=== PATIENT | male | born 1990 | race Caucasian/White ===

== ENCOUNTER → 2019-06-10 | Outpatient (CLI) | payer OTHER ==
--- NOTE | 2019-06-11 03:37 | REP ---
Clinical: Shoulder pain. Technique: Internal rotation, external rotation, and Y view of the right shoulder. Findings: Acromioclavicular and glenohumeral joints appear intact and relatively normal. Subacromial space is within normal limits. No periarticular calcifications or loose bodies identified. No obvious acute injury. Surrounding soft tissues are unremarkable. Impression: Normal right shoulder radiographs. Electronically Signed by Chuck Loving MD 06/11/2019 03:28 A
== END ==
LOC: M WUC 16:30
PROVIDERS: ATTEND Nurse Practitioner Family
DX: M25.511 Pain in right shoulder (principal)

== ENCOUNTER → 2019-08-12 | Outpatient (CLI) | payer OTHER ==
[~2019-08-12] MED LIST: ISOVUE-300 61% 50ML VIAL As Ordered ONE; PROHANCE 279.3MG/ML 5ML VIAL As Ordered ONE
--- NOTE | 2019-08-12 16:28 | REP ---
REASON: Pain, instability, decreased range of motion, assess for labral pathology. The glenohumeral joint injection was performed by HERIBERTO Espinoza. The pre-injection portion of the examination shows moderate to severe hypertrophic degenerative change seen involving the acromioclavicular joint. The acromion process is type 2 with a spur arising from the inferior surface at the AC joint. There is patchy and linear T2 hypersignal seen throughout the supraspinatus tendon without evidence of supraspinatus muscle belly atrophy or retraction. Normal appearing low signal is seen throughout the subscapularis, infraspinatus, and teres minor tendons. The biceps tendon resides within the bicipital groove. There is evidence of a Hill-Sachs deformity. There is no glenohumeral joint effusion. There is a small amount of fluid in the subcoracoid recess. The postinjection portion of the examination shows mild and significant signal abnormality in the anterior labrum, particularly superiorly but in the posterior labrum and inferiorly as well. There is irregularity of the biceps labral complex. There is thickening of the superior aspect of the middle glenohumeral ligament. None of the injected fluid has migrated superior to the supraspinatus tendon. IMPRESSION: 1. There is significant labral pathology consistent with multiple labral tears as described above and seen in conjunction with significant biceps labral complex fraying/partial tear as well. 2. There supraspinatus tendinitis/tendinosis. Longitudinal partial tear cannot be ruled out. 3. Hill-Sacks deformity and thickening of the superior aspect of the middle glenohumeral ligament consistent with repeated glenohumeral dislocations. 4. AC joint DJD and related findings as described above. 5. Other findings as described above. Electronically Signed by Denver Felton DO 08/12/2019 05:32 P
--- NOTE | 2019-08-12 19:38 | REP ---
Procedure: Right shoulder arthrogram The procedure was performed under the direct supervision of Dr. Puente. History: Right shoulder pain The benefits and risks including but not limited to pain, infection, bleeding and anaphylaxis were explained to the patient and informed consent was obtained. Technique: The right glenohumeral joint space was localized using fluoroscopic guidance. The skin was prepped and draped in a sterile fashion. 1% lidocaine was used as a local anesthetic. Using fluoroscopic guidance a 22 gauge spinal needle was inserted and advanced into the joint. 0.5 ml of Conray 43 was injected to verify placement. 11 ml of a solution containing 20 ml of sterile saline and 0.15 ml of ProHance was injected into the joint. The needle was removed and the patient was taken to MRI for postprocedural imaging. The the patient tolerated the procedure well and there were no immediate complications. Less than 6 seconds of fluoro time was utilized for this procedure. Electronically Signed by HERIBERTO Espinoza 08/12/2019 05:00 P Electronically Signed by Niraj Puente MD 08/12/2019 07:28 P
== END ==
LOC: M RADPRO 06:31
PROVIDERS: ATTEND Orthopaedic Surgery Sports Medicine
DX: M25.311 Other instability, right shoulder (principal); M21.921 Unspecified acquired deformity of right upper arm; M75.81 Other shoulder lesions, right shoulder
CPT/HCPCS: 23350; 73223; 77002; A9576; Q9967

== ENCOUNTER → 2022-09-05 | Outpatient (REF) | payer OTHER ==
[2022-09-05 17:42] LABS: BASO % 0.5 % (0.0-1.0); EOS # 0.1 10^3/uL (0.0-0.5); EOS % 1.2 % (0.0-3.0); HEMATOCRIT 43.3 % (42.0-52.0); HEMOGLOBIN 15.1 g/dl (13.5-17.5); LYMPH # 2.2 10^3/uL (1.5-5.0); LYMPH % 36.2 % (24.0-44.0); MEAN CORPUSCULAR HEMOGLOBIN 36.5 pg (27.0-33.0); MEAN CORPUSCULAR HGB CONC 34.9 g/dl (32.0-36.5); MEAN CORPUSCULAR VOLUME 104.6 fl (80.0-96.0); MONO # 0.5 10^3/uL (0.0-0.8); MONO % 8.4 % (2.0-8.0); NEUTROPHILS # 3.2 10^3/uL (1.5-8.5); NEUTROPHILS % 53.5 % (36.0-66.0); PLATELET COUNT, AUTOMATED 237 10^3/uL (150-450); RED BLOOD COUNT 4.14 10^6/uL (4.30-6.10)
[2022-09-05 18:03] LABS: ALBUMIN 4.3 G/DL (3.2-5.2); ALKALINE PHOSPHATASE 78 U/L (46-116); ALT/SGPT 64 U/L (7.0-40); AST/SGOT 27 U/L (<34); BILIRUBIN,TOTAL 0.6 MG/DL (0.3-1.2); BLOOD UREA NITROGEN 17 MG/DL (9-23); CALCIUM LEVEL 9.1 MG/DL (8.5-10.1); CARBON DIOXIDE LEVEL 26 MMOL/L (20-31); CHLORIDE LEVEL 102 MMOL/L (98-107); CHOLESTEROL LEVEL 180 MG/DL (<200); CHOLESTEROL RISK RATIO 4.63 (<5); CREATININE FOR GFR 1.02 MG/DL (0.70-1.30); GLOMERULAR FILTRATION RATE > 60.0 (>60); GLUCOSE, FASTING 101 MG/DL (60-100); HDL CHOLESTEROL 38.8 MG/DL (>40); NON-HDL-C 141.2 MG/DL; POTASSIUM SERUM 4.6 MMOL/L (3.5-5.1); SODIUM LEVEL 138 MMOL/L (136-145); TRIGLYCERIDES LEVEL 627 MG/DL (<150)
[2022-09-05 18:04] LABS: THYROID STIMULATING HORMONE 1.064 uIU/ML (0.55-4.78); TOTAL 25(OH) VITAMIN D 20.2 NG/ML (20.0-100.0)
[2022-09-05 18:38] LABS: HEMOGLOBIN A1c 4.9 % (4.0-6.0)
== END ==
LOC: M LAB REF 16:36
PROVIDERS: ATTEND Nurse Practitioner Family
DX: E66.3 Overweight (principal); E55.9 Vitamin D deficiency, unspecified; Z11.9 Encounter for screening for infectious and parasitic diseases, unspecified; Z68.41 Body mass index [BMI] 40.0-44.9, adult

== ENCOUNTER 2022-10-09 16:23 | Emergency (ER) | payer OTHER ==
[~2022-10-09] VITALS: Ht 188 cm; Wt 145.5 kg
[2022-10-09] MEDS ORDERED: ONDANSETRON 4MG 2ML VIAL IV ONE (16:35)
[2022-10-09] MEDS ORDERED: NS 1,000 ML IV ONE (16:35)
[2022-10-09] MEDS ORDERED: KETOROLAC 30 MG/ML 1ML VIAL IV ONE (17:25)
[2022-10-09] MEDS ORDERED: METOCLOPRAMIDE INJ 10MG/2ML VIAL IV ONE (17:25)
[2022-10-09 17:27] LABS: ALBUMIN 4.7 G/DL (3.2-5.2); ALKALINE PHOSPHATASE 77 U/L (46-116); ALT/SGPT 58 U/L (7.0-40); AST/SGOT 28 U/L (<34); BILIRUBIN,TOTAL 1.5 MG/DL (0.3-1.2); BLOOD UREA NITROGEN 15 MG/DL (9-23); CALCIUM LEVEL 9.8 MG/DL (8.5-10.1); CARBON DIOXIDE LEVEL 21 MMOL/L (20-31); CHLORIDE LEVEL 107 MMOL/L (98-107); CREATININE FOR GFR 0.89 MG/DL (0.70-1.30); GLOMERULAR FILTRATION RATE > 60.0 (>60); GLUCOSE, FASTING 116 MG/DL (60-100); POTASSIUM SERUM 4.3 MMOL/L (3.5-5.1); SODIUM LEVEL 142 MMOL/L (136-145); TOTAL PROTEIN 7.7 G/DL (5.7-8.2)
[2022-10-09 17:35] LABS: BASO % 0.1 % (0.0-1.0); HEMATOCRIT 43.9 % (42.0-52.0); HEMOGLOBIN 15.9 g/dl (13.5-17.5); LYMPH # 1.2 10^3/uL (1.5-5.0); LYMPH % 8.8 % (24.0-44.0); MEAN CORPUSCULAR HEMOGLOBIN 36.1 pg (27.0-33.0); MEAN CORPUSCULAR HGB CONC 36.2 g/dl (32.0-36.5); MEAN CORPUSCULAR VOLUME 99.5 fl (80.0-96.0); MONO # 0.5 10^3/uL (0.0-0.8); MONO % 3.6 % (2.0-8.0); NEUTROPHILS # 12.1 10^3/uL (1.5-8.5); NEUTROPHILS % 87.1 % (36.0-66.0); PLATELET COUNT, AUTOMATED 250 10^3/uL (150-450); RED BLOOD COUNT 4.41 10^6/uL (4.30-6.10); WHITE BLOOD COUNT 13.9 10^3/uL (4.0-10.0)
[2022-10-09 17:47] LABS: LIPASE 30 U/L (12-53)
[2022-10-09] MEDS ORDERED: MORPHINE 4 MG/ML 1ML VIAL IV PRN (17:55)
[2022-10-09] MEDS ORDERED: MORPHINE 4 MG/ML 1ML VIAL IV ONE (17:55)
[2022-10-09] MEDS ORDERED: ISOVUE-370 76% 100ML VIAL As Ordered ONE (17:58)
[2022-10-09] MEDS ORDERED: PANTOPRAZOLE 40MG VIAL IV ONE (19:50)
[2022-10-09] MEDS ORDERED: SUCRALFATE 1 GM TAB PO ONE (19:50)
[2022-10-09] MEDS ORDERED: MAALOX 30 ML SUSP *UDC PO ONE (19:50)
[2022-10-09] MEDS ORDERED: HYOSCYAMINE SULFATE 0.125 MG SUBL TABLET PO ONE (19:50)
[2022-10-09 20:11] LABS: CK-MB VALUE MASS 3.4 NG/ML (<3.6)
[2022-10-09 20:15] LABS: CPK CREATINE PHOSPHOKINASE 548 U/L (46-171); MB/CK RELATIVE INDEX 0.62 (< OR =4)
[2022-10-09] MEDS ORDERED: ONDA4TAB6 PO (20:52)
[2022-10-09] MEDS ORDERED: OMEP40CA4 PO (20:52)
[2022-10-09 21:10] VITALS: BP 134/81; TEMP 98.3; O2SAT 98
== END 2022-10-09 21:13 | disposition home or self-care (01) ==
LOC: M ED 16:23
DX: R10.13 Epigastric pain (principal); R11.10 Vomiting, unspecified; M54.50 Low back pain, unspecified; R74.8 Abnormal levels of other serum enzymes; I44.4 Left anterior fascicular block; Z79.83 Long term (current) use of bisphosphonates; Z79.899 Other long term (current) drug therapy
CPT/HCPCS: 71045; 74177; 80053; 81001; 82550; 82553; 83690; 85025; 93005; 96361; 96374; 96375; 99284; C9113; J1885; J2405; J2765; Q9967

== ENCOUNTER → 2022-10-27 | Outpatient (REF) | payer OTHER ==
[~2022-10-27] MED LIST changes: -ISOVUE-300 61% 50ML VIAL As Ordered ONE; +OMEP40CA4 PO; +ONDA4TAB6 PO; -PROHANCE 279.3MG/ML 5ML VIAL As Ordered ONE
[2022-10-27 17:21] LABS: BLOOD UREA NITROGEN 19 MG/DL (9-23); CALCIUM LEVEL 8.6 MG/DL (8.5-10.1); CARBON DIOXIDE LEVEL 27 MMOL/L (20-31); CHLORIDE LEVEL 108 MMOL/L (98-107); CHOLESTEROL LEVEL 121 MG/DL (<200); CHOLESTEROL RISK RATIO 2.96 (<5); CREATININE FOR GFR 0.94 MG/DL (0.70-1.30); GLOMERULAR FILTRATION RATE > 60.0 (>60); GLUCOSE, FASTING 78 MG/DL (60-100); HDL CHOLESTEROL 40.8 MG/DL (>40); LDL CHOLESTEROL 56.8 MG/DL (<100); NON-HDL-C 80.2 MG/DL; SODIUM LEVEL 142 MMOL/L (136-145); TRIGLYCERIDES LEVEL 117 MG/DL (<150)
[2022-10-27 17:24] LABS: TOTAL 25(OH) VITAMIN D 26.4 NG/ML (20.0-100.0)
[2022-10-27 17:29] LABS: BASO % 0.6 % (0.0-1.0); EOS # 0.1 10^3/uL (0.0-0.5); EOS % 1.5 % (0.0-3.0); HEMATOCRIT 38.4 % (42.0-52.0); HEMOGLOBIN 13.4 g/dl (13.5-17.5); LYMPH % 37.2 % (24.0-44.0); MEAN CORPUSCULAR HEMOGLOBIN 36.5 pg (27.0-33.0); MEAN CORPUSCULAR HGB CONC 34.9 g/dl (32.0-36.5); MEAN CORPUSCULAR VOLUME 104.6 fl (80.0-96.0); MONO # 0.7 10^3/uL (0.0-0.8); MONO % 12.7 % (2.0-8.0); NEUTROPHILS # 2.6 10^3/uL (1.5-8.5); NEUTROPHILS % 47.8 % (36.0-66.0); PLATELET COUNT, AUTOMATED 182 10^3/uL (150-450); RED BLOOD COUNT 3.67 10^6/uL (4.30-6.10); WHITE BLOOD COUNT 5.4 10^3/uL (4.0-10.0)
[2022-10-27 17:47] LABS: CPK CREATINE PHOSPHOKINASE 1655 U/L (46-171)
== END ==
LOC: M LAB REF 15:59
PROVIDERS: ATTEND Nurse Practitioner Family
DX: R74.8 Abnormal levels of other serum enzymes (principal); R79.89 Other specified abnormal findings of blood chemistry; Z68.41 Body mass index [BMI] 40.0-44.9, adult; E55.9 Vitamin D deficiency, unspecified

== ENCOUNTER → 2022-11-21 | Outpatient (REF) | payer OTHER | LOC: M LABSMT 09:07 | PROVIDERS: ATTEND Urology | DX: Z30.2 Encounter for sterilization (principal) ==

== ENCOUNTER → 2022-11-22 | Outpatient (REF) | payer OTHER ==
[2022-11-22 13:16] LABS: INR 1.04; PROTHROMBIN TIME 13.3 SECONDS (12.5-14.5)
[2022-11-22 13:34] LABS: PHOSPHORUS LEVEL 2.4 MG/DL (2.5-4.9)
== END ==
LOC: M LAB REF 12:15
PROVIDERS: ATTEND Nurse Practitioner Family
DX: R74.8 Abnormal levels of other serum enzymes (principal)

== ENCOUNTER → 2023-01-02 | Outpatient (REF) | payer OTHER | LOC: M LAB REF 18:00 | PROVIDERS: ATTEND Nurse Practitioner Family | DX: R74.8 Abnormal levels of other serum enzymes (principal) ==

== ENCOUNTER 2023-06-08 07:11 | Emergency (ER) | payer OTHER, SELFPAY ==
[~2023-06-08] VITALS: Ht 188 cm; Wt 140.7 kg
[~2023-06-08 07:11] MED LIST changes: +KRIL1CAP PO; +[UNRECOGNIZED DRUG - OTHER] PO
[2023-06-08 07:48] LABS: BASO % 0.3 % (0.0-1.0); EOS % 0.3 % (0.0-3.0); HEMATOCRIT 44.7 % (42.0-52.0); LYMPH # 1.6 10^3/uL (1.5-5.0); LYMPH % 13.8 % (24.0-44.0); MEAN CORPUSCULAR HEMOGLOBIN 36.2 pg (27.0-33.0); MEAN CORPUSCULAR HGB CONC 35.8 g/dl (32.0-36.5); MEAN CORPUSCULAR VOLUME 101.1 fl (80.0-96.0); MONO # 0.4 10^3/uL (0.0-0.8); MONO % 3.6 % (2.0-8.0); NEUTROPHILS # 9.1 10^3/uL (1.5-8.5); NEUTROPHILS % 81.5 % (36.0-66.0); PLATELET COUNT, AUTOMATED 214 10^3/uL (150-450); RED BLOOD COUNT 4.42 10^6/uL (4.30-6.10); WHITE BLOOD COUNT 11.2 10^3/uL (4.0-10.0)
[2023-06-08] MEDS: PANTOPRAZOLE 40MG VIAL IV ONE (07:48)
[2023-06-08] MEDS: ONDANSETRON 4MG 2ML VIAL IV ONE (07:49)
[2023-06-08] MEDS: NS 1,000 ML IV ONE (07:49)
[2023-06-08] MEDS: KETOROLAC 30 MG/ML 1ML VIAL IV ONE (07:58)
[2023-06-08] MEDS ORDERED: ISOVUE-370 76% 100ML VIAL As Ordered ONE (08:09)
[2023-06-08] MEDS: MORPHINE 4 MG/ML 1ML VIAL IV ONE (08:13)
[2023-06-08 08:16] LABS: ALBUMIN 4.8 G/DL (3.2-5.2); BILIRUBIN,DIRECT 0.5 MG/DL (<0.4); BILIRUBIN,TOTAL 1.4 MG/DL (0.3-1.2); TOTAL PROTEIN 7.4 G/DL (5.7-8.2)
[2023-06-08 09:10] LABS: APPEARANCE, URINE CLOUDY (CLEAR); BACTERIA, URINE AUTO NEGATIVE (NEGATIVE); BILIRUBIN, URINE AUTO NEGATIVE (NEGATIVE); BLOOD, URINE BLOOD NEGATIVE (NEGATIVE); COLOR, URINE YELLOW (YELLOW); GLUCOSE, URINE (UA) AUTO NEGATIVE (NEGATIVE); KETONE, URINE AUTO NEGATIVE (NEGATIVE); LEUKOCYTE ESTERASE, URINE AUTO NEGATIVE (NEGATIVE); MUCUS, URINE SMALL (NEGATIVE); NITRITE, URINE AUTO NEGATIVE (NEGATIVE); PROTEIN, URINE AUTO 1+ mg/dL (NEGATIVE); RBC, URINE AUTO 1 /HPF (0-3); SPECIFIC GRAVITY URINE AUTO 1.034 (1.002-1.035); SQUAMOUS EPITHELIAL CELL UR AU 2 /HPF (0-6); UROBILINOGEN, URINE AUTO 0.2 mg/dL (0.0-2.0); WBC, URINE AUTO 1 /HPF (0-3)
[2023-06-08] MEDS ORDERED: HOME MED LIST COMPLETE! XX SCH (09:55)
[2023-06-08] MEDS ORDERED: CARA1TAB6 PO (10:53)
[2023-06-08] MEDS ORDERED: PROT1TAB2 PO (10:53)
[2023-06-08] MEDS ORDERED: ONDA4TAB6 PO (10:53)
[2023-06-08 11:02] VITALS: BP 144/85; TEMP 98.7; O2SAT 100
== END 2023-06-08 11:04 | disposition home or self-care (01) ==
LOC: M ED 07:11
DX: R11.2 Nausea with vomiting, unspecified (principal); K29.70 Gastritis, unspecified, without bleeding; K76.0 Fatty (change of) liver, not elsewhere classified; K57.92 Diverticulitis of intestine, part unspecified, without perforation or abscess without bleeding; F12.10 Cannabis abuse, uncomplicated; Z98.52 Vasectomy status; Z79.899 Other long term (current) drug therapy; Z79.810 Long term (current) use of selective estrogen receptor modulators (SERMs); Z79.1 Long term (current) use of non-steroidal anti-inflammatories (NSAID)
CPT/HCPCS: 74177; 76705; 80047; 80076; 81001; 83690; 85025; 96361; 96374; 96375; 99284; C9113; J1885; J2405; Q9967

== ENCOUNTER 2023-08-21 06:39 | Emergency (ER) | payer SELFPAY ==
[~2023-08-21] VITALS: Ht 190.5 cm; Wt 142.7 kg
[~2023-08-21 06:39] MED LIST changes: +CARA1TAB6 PO; +ONDA-282 PO; -ONDA4TAB6 PO; +PROT1TAB2 PO
[2023-08-21 06:40] VITALS: TEMP 96.8
[2023-08-21] MEDS: NS 1,000 ML IV ONE (07:40)
[2023-08-21 07:45] VITALS: BP 135/81
[2023-08-21 07:51] VITALS: O2SAT 96
[2023-08-21 08:00] LABS: BASO % 0.3 % (0.0-1.0); EOS # 0.1 10^3/uL (0.0-0.5); EOS % 2.2 % (0.0-3.0); HEMATOCRIT 43.5 % (42.0-52.0); HEMOGLOBIN 15.4 g/dl (13.5-17.5); LYMPH # 1.5 10^3/uL (1.5-5.0); LYMPH % 26.3 % (24.0-44.0); MEAN CORPUSCULAR HEMOGLOBIN 36.8 pg (27.0-33.0); MEAN CORPUSCULAR HGB CONC 35.4 g/dl (32.0-36.5); MEAN CORPUSCULAR VOLUME 103.8 fl (80.0-96.0); MONO # 0.4 10^3/uL (0.0-0.8); MONO % 6.8 % (2.0-8.0); NEUTROPHILS # 3.8 10^3/uL (1.5-8.5); NEUTROPHILS % 64.1 % (36.0-66.0); PLATELET COUNT, AUTOMATED 211 10^3/uL (150-450); RED BLOOD COUNT 4.19 10^6/uL (4.30-6.10); WHITE BLOOD COUNT 5.9 10^3/uL (4.0-10.0)
[2023-08-21 08:11] LABS: INR 0.98; PARTIAL THROMBOPLASTIN TIME 26.4 SECONDS (24.8-34.2); PROTHROMBIN TIME 12.7 SECONDS (12.5-14.5)
[2023-08-21 08:18] LABS: BLOOD UREA NITROGEN 15 MG/DL (9-23); CALCIUM LEVEL 8.9 MG/DL (8.5-10.1); CARBON DIOXIDE LEVEL 26 MMOL/L (20-31); CHLORIDE LEVEL 109 MMOL/L (98-107); CREATININE FOR GFR 0.84 MG/DL (0.70-1.30); GLOMERULAR FILTRATION RATE > 60.0 (>60); GLUCOSE, FASTING 95 MG/DL (60-100); POTASSIUM SERUM 4.5 MMOL/L (3.5-5.1); SODIUM LEVEL 139 MMOL/L (136-145)
[2023-08-21] MEDS ORDERED: HOME MED LIST COMPLETE! XX SCH (11:00)
== END 2023-08-21 11:07 | disposition home or self-care (01) ==
LOC: M ED 06:39
DX: K92.2 Gastrointestinal hemorrhage, unspecified (principal); K64.8 Other hemorrhoids; K57.90 Diverticulosis of intestine, part unspecified, without perforation or abscess without bleeding; F12.10 Cannabis abuse, uncomplicated

== ENCOUNTER 2023-11-17 15:46 | Emergency (ER) | payer OTHER, SELFPAY ==
[~2023-11-17] VITALS: Ht 188 cm; Wt 143.6 kg
[2023-11-17] MEDS ORDERED: ISOVUE-370 76% 100ML VIAL As Ordered ONE (16:26)
[2023-11-17] MEDS: ONDANSETRON 4MG 2ML VIAL IV ONE (16:32)
[2023-11-17] MEDS: MORPHINE 4 MG/ML 1ML VIAL IV ONE (16:32)
[2023-11-17] MEDS: NS 1,000 ML IV ONE (16:33)
[2023-11-17 16:51] LABS: BASO % 0.3 % (0.0-1.0); EOS % 0.2 % (0.0-3.0); HEMATOCRIT 44.6 % (42.0-52.0); LYMPH # 1.2 10^3/uL (1.5-5.0); LYMPH % 11.1 % (24.0-44.0); MEAN CORPUSCULAR HEMOGLOBIN 36.5 pg (27.0-33.0); MEAN CORPUSCULAR HGB CONC 35.9 g/dl (32.0-36.5); MEAN CORPUSCULAR VOLUME 101.8 fl (80.0-96.0); MONO # 0.4 10^3/uL (0.0-0.8); MONO % 3.7 % (2.0-8.0); NEUTROPHILS # 9.5 10^3/uL (1.5-8.5); NEUTROPHILS % 84.3 % (36.0-66.0); PLATELET COUNT, AUTOMATED 216 10^3/uL (150-450); RED BLOOD COUNT 4.38 10^6/uL (4.30-6.10); WHITE BLOOD COUNT 11.2 10^3/uL (4.0-10.0)
[2023-11-17 17:16] LABS: ALBUMIN 4.9 G/DL (3.2-5.2); BILIRUBIN,DIRECT 0.6 MG/DL (<0.4); BILIRUBIN,TOTAL 1.9 MG/DL (0.3-1.2); TOTAL PROTEIN 7.8 G/DL (5.7-8.2)
[2023-11-17 18:52] VITALS: BP 142/83; TEMP 97.5; O2SAT 98
== END 2023-11-17 19:01 | disposition home or self-care (01) ==
LOC: M ED 15:46
DX: R10.9 Unspecified abdominal pain (principal); K52.9 Noninfective gastroenteritis and colitis, unspecified; K57.30 Diverticulosis of large intestine without perforation or abscess without bleeding; K76.0 Fatty (change of) liver, not elsewhere classified
CPT/HCPCS: 74177; 80047; 80076; 81001; 83690; 85025; 96361; 96374; 99284; J2405; Q9967

== ENCOUNTER → 2023-12-19 | Outpatient (CLI) | payer OTHER ==
[2023-12-19 18:21] LABS: ALBUMIN 4.4 G/DL (3.2-5.2); ALKALINE PHOSPHATASE 66 U/L (40-129); ALT/SGPT 74 U/L (7.0-40); AST/SGOT 49 U/L (<34); BILIRUBIN,DIRECT 0.6 MG/DL (<0.4); BILIRUBIN,TOTAL 1.9 MG/DL (0.3-1.2); IMMUNOGLOBULIN A 209.8 MG/DL (40-350); IRON (FE) 162 UG/DL (65-175); PERCENT SATURATION 49.2 % (19.7-50.0); TOTAL IRON BINDING CAPACITY 329 UG/DL (250-425); TOTAL PROTEIN 7.5 G/DL (5.7-8.2)
[2023-12-19 18:40] LABS: HEPATITIS B SURFACE ANTIGEN NEGATIVE (NEGATIVE)
[2023-12-19 19:01] LABS: HEPATITIS C VIRUS ABY INDEX 0.02 INDEX (<0.8)
[2023-12-19 19:02] LABS: HEPATITIS B CORE ANTIBODY IGM NEGATIVE (NEGATIVE)
== END ==
LOC: M LRY 14:26
PROVIDERS: ATTEND Internal Medicine Gastroenterology
DX: R74.8 Abnormal levels of other serum enzymes (principal); R93.2 Abnormal findings on diagnostic imaging of liver and biliary tract

== ENCOUNTER 2023-12-27 06:43 | Emergency (ER) | payer OTHER ==
[~2023-12-27] VITALS: Ht 185.4 cm; Wt 140.9 kg
[2023-12-27 07:03] VITALS: BP 190/90; TEMP 96.9; O2SAT 98
== END 2023-12-27 07:28 | disposition left against medical advice (07) ==
LOC: M ED 06:43
DX: Z53.21 Procedure and treatment not carried out due to patient leaving prior to being seen by health care provider (principal)

== ENCOUNTER 2024-05-13 10:50 | Day surgery (SDC) | payer OTHER ==
[~2024-05-13] VITALS: Ht 190.5 cm; Wt 148.8 kg
[~2024-05-13 10:50] MED LIST changes: +TELM1TAB33 PO
[2024-05-13] MEDS ORDERED: fentaNYL 100 MCG/2 ML INJECTION As Ordered ONE (12:36)
[2024-05-13] MEDS ORDERED: MIDAZOLAM INJ 2MG/2ML VIAL As Ordered ONE (12:45)
[2024-05-13] MEDS ORDERED: propofoL 200 MG/20 ML VIAL As Ordered ONE (12:47)
[2024-05-13] MEDS ORDERED: LIDOCAINE 2% 100MG/5ML SDV (FOR ANES.) As Ordered ONE (12:47)
[2024-05-13] MEDS ORDERED: GLYCOPYRROLATE INJ 0.2 MG/ML 2 ML VIAL As Ordered ONE (12:47)
[2024-05-13 13:12] VITALS: TEMP 98.3
[2024-05-13 13:31] VITALS: BP 141/90; O2SAT 95
== END 2024-05-13 13:43 | disposition home or self-care (01) ==
LOC: M OPP 10:50
PROVIDERS: ATTEND Internal Medicine Gastroenterology
DX: K57.30 Diverticulosis of large intestine without perforation or abscess without bleeding (principal); K64.8 Other hemorrhoids; R93.3 Abnormal findings on diagnostic imaging of other parts of digestive tract; K44.9 Diaphragmatic hernia without obstruction or gangrene; R12 Heartburn; G47.30 Sleep apnea, unspecified; Z79.899 Other long term (current) drug therapy
CPT/HCPCS: 43235; 45378; J1596; J2250; J3010

== ENCOUNTER 2024-06-12 20:28 | Emergency (ER) | payer OTHER ==
[~2024-06-12] VITALS: Ht 188 cm; Wt 150.0 kg
[2024-06-12 20:35] VITALS: TEMP 97.2
[2024-06-12] MEDS: ONDANSETRON 4MG 2ML VIAL IV ONE (21:04)
[2024-06-12] MEDS: MORPHINE 4 MG/ML 1ML VIAL IV ONE (21:05)
[2024-06-12 21:07] LABS: BASO % 0.2 % (0.0-1.0); HEMATOCRIT 41.2 % (42.0-52.0); HEMOGLOBIN 14.8 g/dl (13.5-17.5); LYMPH # 1.4 10^3/uL (1.5-5.0); LYMPH % 10.9 % (24.0-44.0); MEAN CORPUSCULAR HEMOGLOBIN 36.7 pg (27.0-33.0); MEAN CORPUSCULAR HGB CONC 35.9 g/dl (32.0-36.5); MEAN CORPUSCULAR VOLUME 102.2 fl (80.0-96.0); MONO # 0.5 10^3/uL (0.0-0.8); MONO % 4.2 % (2.0-8.0); NEUTROPHILS # 10.7 10^3/uL (1.5-8.5); NEUTROPHILS % 84.2 % (36.0-66.0); PLATELET COUNT, AUTOMATED 240 10^3/uL (150-450); RED BLOOD COUNT 4.03 10^6/uL (4.30-6.10); WHITE BLOOD COUNT 12.7 10^3/uL (4.0-10.0)
[2024-06-12 21:23] LABS: LIPASE 28 U/L (12-53)
[2024-06-12 21:25] LABS: ALBUMIN 4.5 G/DL (3.2-5.2); ALKALINE PHOSPHATASE 65 U/L (40-129); ALT/SGPT 95 U/L (7.0-40); AST/SGOT 44 U/L (<34); BILIRUBIN,DIRECT 0.4 MG/DL (<0.4); BILIRUBIN,TOTAL 1.3 MG/DL (0.3-1.2); BLOOD UREA NITROGEN 15 MG/DL (9-23); CALCIUM LEVEL 8.9 MG/DL (8.5-10.1); CARBON DIOXIDE LEVEL 25 MMOL/L (20-31); CHLORIDE LEVEL 105 MMOL/L (98-107); CREATININE FOR GFR 0.92 MG/DL (0.70-1.30); GLOMERULAR FILTRATION RATE > 90.0 (>60); GLUCOSE, FASTING 119 MG/DL (60-100); POTASSIUM SERUM 4.1 MMOL/L (3.5-5.1); SODIUM LEVEL 140 MMOL/L (136-145); TOTAL PROTEIN 7.3 G/DL (5.7-8.2)
[2024-06-12] MEDS ORDERED: ISOVUE-370 76% 100ML VIAL As Ordered ONE (21:38)
[2024-06-12] MEDS ORDERED: MORPHINE 4 MG/ML 1ML VIAL IV ONE (21:55)
[2024-06-12 23:15] VITALS: BP 174/88; O2SAT 96
== END 2024-06-12 23:52 | disposition home or self-care (01) ==
LOC: M ED 20:28
DX: R10.84 Generalized abdominal pain (principal); K57.30 Diverticulosis of large intestine without perforation or abscess without bleeding; R16.0 Hepatomegaly, not elsewhere classified; K42.9 Umbilical hernia without obstruction or gangrene; G47.30 Sleep apnea, unspecified; I10 Essential (primary) hypertension; Z79.899 Other long term (current) drug therapy
CPT/HCPCS: 74177; 80048; 80076; 83690; 85025; 96374; 96375; 99284; J2405; Q9967

== ENCOUNTER 2024-08-11 05:13 | Emergency (ER) | payer OTHER ==
[~2024-08-11] VITALS: Ht 190.5 cm; Wt 136.4 kg
[~2024-08-11 05:13] MED LIST changes: +COLA100C5 PO; +PREP1SUP2 PR
[2024-08-11] MEDS ORDERED: KETOROLAC 30 MG/ML 1 ML VIAL As Ordered ONE (06:15)
[2024-08-11] MEDS: KETOROLAC 30 MG/ML 1 ML VIAL IV ONE ×2 (06:20→08:22)
[2024-08-11 06:29] LABS: BASO # 0.0 10^3/uL (0.0-0.2); BASO % 0.4 % (0.0-1.0); EOS # 0.1 10^3/uL (0.0-0.5); EOS % 0.8 % (0.0-3.0); LYMPH # 1.8 10^3/uL (1.5-5.0); LYMPH % 17.3 % (24.0-44.0); MONO # 0.9 10^3/uL (0.0-0.8); MONO % 8.2 % (2.0-8.0); NEUTROPHILS # 7.6 10^3/uL (1.5-8.5); NEUTROPHILS % 72.9 % (36.0-66.0); PLATELET COUNT, AUTOMATED 260 10^3/uL (150-450)
[2024-08-11 06:48] LABS: ALT/SGPT 35 U/L (7.0-40); AST/SGOT 24 U/L (<34); CALCIUM LEVEL 9.1 MG/DL (8.5-10.1); CARBON DIOXIDE LEVEL 23 MMOL/L (20-31); CHLORIDE LEVEL 107 MMOL/L (98-107); CREATININE FOR GFR 0.94 MG/DL (0.70-1.30); GLOMERULAR FILTRATION RATE > 90.0 (>60); POTASSIUM SERUM 4.2 MMOL/L (3.5-5.1); SODIUM LEVEL 139 MMOL/L (136-145)
[2024-08-11 08:07] LABS: KETONE, URINE AUTO RFX NEGATIVE (NEGATIVE); LEUKOCYTE ESTERASE UR AUTO RFX NEGATIVE (NEGATIVE); MUCUS, URINE RFX SMALL (NEGATIVE); NITRITE, URINE AUTO RFX NEGATIVE (NEGATIVE); RBC, URINE AUTO RFX 0 /HPF (0-3); SQUAM EPITHELIAL CELL UR AURFX 1 /HPF (0-6); WBC, URINE AUTO RFX 3 /HPF (0-3)
[2024-08-11] MEDS: GASTROGRAFIN SOLUTION 30ML PO SCH (08:46)
[2024-08-11] MEDS ORDERED: ISOVUE-370 76% 100 ML VIAL As Ordered ONE (09:02)
[2024-08-11] MEDS ORDERED: CIPR-249 PO (10:58)
[2024-08-11] MEDS ORDERED: METR-265 PO (10:58)
[2024-08-11] MEDS ORDERED: HYDR-3713 PO (10:59)
[2024-08-11] MEDS: CIPROFLOXACIN 500 MG TABLET PO ONE (11:20)
[2024-08-11 11:26] VITALS: BP 161/91; TEMP 98.1; O2SAT 100
== END 2024-08-11 11:28 | disposition home or self-care (01) ==
LOC: M ED 05:13
DX: K57.32 Diverticulitis of large intestine without perforation or abscess without bleeding (principal); I10 Essential (primary) hypertension; G47.30 Sleep apnea, unspecified; F12.10 Cannabis abuse, uncomplicated; F17.200 Nicotine dependence, unspecified, uncomplicated; Z79.1 Long term (current) use of non-steroidal anti-inflammatories (NSAID); Z79.2 Long term (current) use of antibiotics; Z79.899 Other long term (current) drug therapy
CPT/HCPCS: 74021; 74177; 80048; 80076; 81001; 83690; 85025; 93041; 99284; J1885; Q9963; Q9967

== ENCOUNTER → 2024-08-27 | Outpatient (CLI) | payer OTHER ==
[~2024-08-27] MED LIST changes: +CIPR-249 PO; +HYDR-3713 PO; +METR-265 PO
== END ==
LOC: M RAD 08:26
PROVIDERS: ATTEND Nurse Practitioner Family
DX: R10.9 Unspecified abdominal pain (principal)

== ENCOUNTER 2024-09-26 15:42 | Emergency (ER) | payer OTHER ==
[~2024-09-26] VITALS: Ht 188 cm; Wt 136.4 kg
[2024-09-26 16:17] VITALS: BP 150/107; TEMP 98.7; O2SAT 96
== END 2024-09-26 18:07 | disposition left against medical advice (07) ==
LOC: M ED 15:42
DX: Z53.21 Procedure and treatment not carried out due to patient leaving prior to being seen by health care provider (principal)

== ENCOUNTER 2024-10-24 05:15 | Emergency (ER) | payer OTHER ==
[~2024-10-24] VITALS: Ht 188 cm; Wt 136.3 kg
[2024-10-24 06:29] LABS: BASO # 0.0 10^3/uL (0.0-0.2); BASO % 0.3 % (0.0-1.0); EOS # 0.0 10^3/uL (0.0-0.5); EOS % 0.3 % (0.0-3.0); LYMPH # 1.9 10^3/uL (1.5-5.0); LYMPH % 18.9 % (24.0-44.0); MONO # 0.5 10^3/uL (0.0-0.8); MONO % 4.8 % (2.0-8.0); NEUTROPHILS # 7.4 10^3/uL (1.5-8.5); NEUTROPHILS % 75.3 % (36.0-66.0); PLATELET COUNT, AUTOMATED 232 10^3/uL (150-450)
[2024-10-24] MEDS: HALOPERIDOL LACTATE 5 MG/ML VIAL IV ONE (06:48)
[2024-10-24] MEDS: KETOROLAC 30 MG/ML 1 ML VIAL IV ONE (06:48)
[2024-10-24 06:55] LABS: ALT/SGPT 57 U/L (7.0-40); AST/SGOT 31 U/L (<34); CALCIUM LEVEL 9.2 MG/DL (8.5-10.1); CARBON DIOXIDE LEVEL 26 MMOL/L (20-31); CHLORIDE LEVEL 106 MMOL/L (98-107); CREATININE FOR GFR 1.00 MG/DL (0.70-1.30); GLOMERULAR FILTRATION RATE > 90.0 (>60); POTASSIUM SERUM 4.0 MMOL/L (3.5-5.1); SODIUM LEVEL 141 MMOL/L (136-145)
[2024-10-24 08:48] VITALS: TEMP 97.3; O2SAT 98
[2024-10-24] MEDS ORDERED: METO5TAB2 PO (09:04)
[2024-10-24 09:17] VITALS: BP 137/80
== END 2024-10-24 09:40 | disposition home or self-care (01) ==
LOC: M ED 05:15
DX: R11.2 Nausea with vomiting, unspecified (principal); R10.13 Epigastric pain; G47.33 Obstructive sleep apnea (adult) (pediatric); K57.30 Diverticulosis of large intestine without perforation or abscess without bleeding; I44.7 Left bundle-branch block, unspecified; F12.10 Cannabis abuse, uncomplicated; Z79.1 Long term (current) use of non-steroidal anti-inflammatories (NSAID); Z79.899 Other long term (current) drug therapy
CPT/HCPCS: 80048; 80076; 83605; 83690; 85025; 96374; 99284; J1630; J1885

== ENCOUNTER 2024-11-24 09:22 | Emergency (ER) | payer OTHER ==
[~2024-11-24] VITALS: Ht 190.5 cm; Wt 134.0 kg
[~2024-11-24 09:22] MED LIST changes: +METO5TAB2 PO
[2024-11-24] MEDS ORDERED: HALOPERIDOL LACTATE 5 MG/ML VIAL As Ordered ONE (10:07)
[2024-11-24] MEDS: HALOPERIDOL LACTATE 5 MG/ML VIAL IV ONE (10:08)
[2024-11-24] MEDS: HYDROMORPHONE HCL 0.5 MG/0.5 ML SYRINGE IV PRN (10:09)
[2024-11-24 10:16] LABS: BASO # 0.0 10^3/uL (0.0-0.2); BASO % 0.2 % (0.0-1.0); EOS # 0.0 10^3/uL (0.0-0.5); EOS % 0.0 % (0.0-3.0); LYMPH # 0.9 10^3/uL (1.5-5.0); LYMPH % 8.6 % (24.0-44.0); MONO # 0.3 10^3/uL (0.0-0.8); MONO % 2.5 % (2.0-8.0); NEUTROPHILS # 9.2 10^3/uL (1.5-8.5); NEUTROPHILS % 88.5 % (36.0-66.0); PLATELET COUNT, AUTOMATED 252 10^3/uL (150-450)
[2024-11-24 10:27] LABS: INR 0.97
[2024-11-24 10:40] LABS: CK-MB VALUE MASS 3.2 NG/ML (<3.6)
[2024-11-24 10:43] LABS: ALT/SGPT 41 U/L (7.0-40); AST/SGOT 26 U/L (<34); CALCIUM LEVEL 9.7 MG/DL (8.5-10.1); CARBON DIOXIDE LEVEL 23 MMOL/L (20-31); CHLORIDE LEVEL 108 MMOL/L (98-107); CREATININE FOR GFR 0.92 MG/DL (0.70-1.30); GLOMERULAR FILTRATION RATE > 90.0 (>60); POTASSIUM SERUM 4.3 MMOL/L (3.5-5.1); SODIUM LEVEL 144 MMOL/L (136-145)
[2024-11-24 10:50] LABS: CPK CREATINE PHOSPHOKINASE 348 U/L (46-171); MB/CK RELATIVE INDEX 0.91 (< OR =4)
[2024-11-24] MEDS: NS (Normal Saline) 0.9% 1,000 ML IV ONE (11:10)
[2024-11-24] MEDS ORDERED: HOME MED LIST COMPLETE! XX SCH (11:20)
[2024-11-24 11:56] LABS: CK-MB VALUE MASS 2.7 NG/ML (<3.6)
[2024-11-24 11:58] LABS: CPK CREATINE PHOSPHOKINASE 308.0 U/L (46-171); MB/CK RELATIVE INDEX 0.87 (< OR =4)
[2024-11-24] MEDS ORDERED: ISOVUE-370 76% 100 ML VIAL As Ordered ONE (11:58)
[2024-11-24 12:15] LABS: KETONE, URINE AUTO RFX NEGATIVE (NEGATIVE); LEUKOCYTE ESTERASE UR AUTO RFX NEGATIVE (NEGATIVE); MUCUS, URINE RFX SMALL (NEGATIVE); NITRITE, URINE AUTO RFX NEGATIVE (NEGATIVE); RBC, URINE AUTO RFX 0 /HPF (0-3); SQUAM EPITHELIAL CELL UR AURFX 0 /HPF (0-6); WBC, URINE AUTO RFX 0 /HPF (0-3)
[2024-11-24 12:30] VITALS: TEMP 97.9
[2024-11-24 12:33] LABS: AMPHETAMINES LEVEL URINE NEGATIVE (NEGATIVE); BARBITURATES URINE NEGATIVE (NEGATIVE); BENZODIAZEPINES URINE NEGATIVE (NEGATIVE); COCAINE METABOLITE URINE NEGATIVE (NEGATIVE); METHADONE URINE NEGATIVE (NEGATIVE); OPIATES URINE NEGATIVE (NEGATIVE); PHENCYCLIDINE URINE NEGATIVE (NEGATIVE)
[2024-11-24 12:34] LABS: CANNABINOIDS URINE POSITIVE (NEGATIVE)
[2024-11-24 13:45] VITALS: BP 160/88; O2SAT 98
== END 2024-11-24 13:50 | disposition left against medical advice (07) ==
LOC: M ED 09:22
DX: K52.89 Other specified noninfective gastroenteritis and colitis (principal); K76.0 Fatty (change of) liver, not elsewhere classified; R16.0 Hepatomegaly, not elsewhere classified; K42.9 Umbilical hernia without obstruction or gangrene; I44.7 Left bundle-branch block, unspecified; I45.81 Long QT syndrome; G47.33 Obstructive sleep apnea (adult) (pediatric); K57.30 Diverticulosis of large intestine without perforation or abscess without bleeding; F12.10 Cannabis abuse, uncomplicated
CPT/HCPCS: 71045; 74177; 80047; 80048; 80076; 80307; 81001; 82550; 82553; 83605; 83690; 84484; 85025; 85610; 85730; 87086; 93005; 93041; 96361; 96374; 96375; 99285; J1171; J1630; Q9967

== ENCOUNTER 2025-01-11 19:49 | Emergency (ER) | payer OTHER ==
[~2025-01-11] VITALS: Ht 188 cm; Wt 136.4 kg
[2025-01-11 20:38] LABS: BASO # 0.0 10^3/uL (0.0-0.2); BASO % 0.1 % (0.0-1.0); EOS # 0.0 10^3/uL (0.0-0.5); EOS % 0.0 % (0.0-3.0); LYMPH # 0.8 10^3/uL (1.5-5.0); LYMPH % 7.3 % (24.0-44.0); MONO # 0.5 10^3/uL (0.0-0.8); MONO % 4.6 % (2.0-8.0); NEUTROPHILS # 9.8 10^3/uL (1.5-8.5); NEUTROPHILS % 87.7 % (36.0-66.0); PLATELET COUNT, AUTOMATED 197 10^3/uL (150-450)
[2025-01-11] MEDS: ONDANSETRON 4MG/2ML VIAL IV ONE (20:38)
[2025-01-11] MEDS: KETOROLAC 30 MG/ML 1 ML VIAL IV ONE (20:39)
[2025-01-11] MEDS ORDERED: ISOVUE-370 76% 100 ML VIAL As Ordered ONE (21:40)
[2025-01-11] MEDS: NS (Normal Saline) 0.9% 1,000 ML IV ONE (21:44)
[2025-01-11 21:48] LABS: ALT/SGPT 49.0 U/L (7.0-40); AST/SGOT 35.0 U/L (<34)
[2025-01-11 22:45] LABS: APPEARANCE, URINE CLEAR (CLEAR); BACTERIA, URINE AUTO NEGATIVE (NEGATIVE); BILIRUBIN, URINE AUTO NEGATIVE (NEGATIVE); BLOOD, URINE BLOOD NEGATIVE (NEGATIVE); GLUCOSE, URINE (UA) AUTO NEGATIVE (NEGATIVE); KETONE, URINE AUTO TRACE mg/dL (NEGATIVE); LEUKOCYTE ESTERASE, URINE AUTO NEGATIVE (NEGATIVE); MUCUS, URINE SMALL (NEGATIVE); NITRITE, URINE AUTO NEGATIVE (NEGATIVE); PROTEIN, URINE AUTO 1+ mg/dL (NEGATIVE); RBC, URINE AUTO 1 /HPF (0-3); SPECIFIC GRAVITY URINE AUTO 1.032 (1.002-1.035); SQUAMOUS EPITHELIAL CELL UR AU 0 /HPF (0-6); UROBILINOGEN, URINE AUTO 0.2 mg/dL (0.0-2.0); WBC, URINE AUTO 3 /HPF (0-3)
[2025-01-11] MEDS ORDERED: AMOX875T2 PO (23:00)
[2025-01-11 23:04] VITALS: BP 157/85; TEMP 98.4; O2SAT 98
[2025-01-11] MEDS: PANTOPRAZOLE 40MG VIAL IV ONE (23:07)
[2025-01-11] MEDS: AUGMENTIN 875 MG TAB PO ONE (23:08)
== END 2025-01-11 23:18 | disposition home or self-care (01) ==
LOC: M ED 19:49
DX: K57.32 Diverticulitis of large intestine without perforation or abscess without bleeding (principal); K29.70 Gastritis, unspecified, without bleeding; K42.9 Umbilical hernia without obstruction or gangrene; I10 Essential (primary) hypertension; G47.33 Obstructive sleep apnea (adult) (pediatric); Z79.2 Long term (current) use of antibiotics; Z79.899 Other long term (current) drug therapy
CPT/HCPCS: 74177; 80047; 80076; 81001; 83690; 85025; 96361; 96374; 96375; 99284; J1885; J2405; J2470; Q9967

== ENCOUNTER 2025-01-25 09:19 | Emergency (ER) | payer OTHER ==
[~2025-01-25] VITALS: Ht 188 cm; Wt 136.4 kg
[~2025-01-25 09:19] MED LIST changes: +AMOX875T2 PO
[2025-01-25] MEDS ORDERED: AMOX875T PO (11:17)
[2025-01-25] MEDS ORDERED: OSEL75CA PO (11:17)
[2025-01-25] MEDS ORDERED: IBUP600T42 PO (11:22)
[2025-01-25] MEDS: KETOROLAC 30 MG/ML 1 ML VIAL IM ONE (11:25)
[2025-01-25 11:50] VITALS: BP 172/97; TEMP 101.2; O2SAT 96
[2025-01-25] MEDS: ACETAMINOPHEN 500 MG TAB PO ONE (12:03)
== END 2025-01-25 12:10 | disposition home or self-care (01) ==
LOC: M ED 09:19
DX: J09.X2 Influenza due to identified novel influenza A virus with other respiratory manifestations (principal); G47.33 Obstructive sleep apnea (adult) (pediatric); Z79.2 Long term (current) use of antibiotics; Z79.1 Long term (current) use of non-steroidal anti-inflammatories (NSAID); Z79.899 Other long term (current) drug therapy
CPT/HCPCS: 87486; 87581; 87633; 87798; 96372; 99283; J1885

== ENCOUNTER 2025-01-27 09:05 | Emergency (ER) | payer OTHER ==
[~2025-01-27] VITALS: Ht 188 cm; Wt 136.4 kg
[~2025-01-27 09:05] MED LIST changes: +AMOX875T PO; +IBUP600T42 PO; +OSEL75CA PO
[2025-01-27] MEDS: ONDANSETRON 4MG/2ML VIAL IV ONE (10:36)
[2025-01-27] MEDS: KETOROLAC 30 MG/ML 1 ML VIAL IV ONE (10:38)
[2025-01-27 10:45] LABS: BASO # 0.0 10^3/uL (0.0-0.2); BASO % 0.2 % (0.0-1.0); EOS # 0.0 10^3/uL (0.0-0.5); EOS % 0.0 % (0.0-3.0); LYMPH # 0.5 10^3/uL (1.5-5.0); LYMPH % 12.4 % (24.0-44.0); MONO # 0.4 10^3/uL (0.0-0.8); MONO % 9.3 % (2.0-8.0); NEUTROPHILS # 3.3 10^3/uL (1.5-8.5); NEUTROPHILS % 77.9 % (36.0-66.0); PLATELET COUNT, AUTOMATED 142 10^3/uL (150-450)
[2025-01-27] MEDS: NS (Normal Saline) 0.9% 1,000 ML IV ONE (10:45)
[2025-01-27] MEDS ORDERED: ISOVUE-370 76% 100 ML VIAL As Ordered ONE (10:56)
[2025-01-27 11:17] LABS: ALT/SGPT 46.0 U/L (7.0-40); AST/SGOT 35.0 U/L (<34); C REACTIVE PROTEIN QUANTITATIV 6.7 MG/DL (<1.0)
[2025-01-27 12:31] VITALS: BP 140/94; TEMP 98; O2SAT 96
== END 2025-01-27 12:32 | disposition home or self-care (01) ==
LOC: M ED 09:05
DX: R10.9 Unspecified abdominal pain (principal); K21.9 Gastro-esophageal reflux disease without esophagitis; K57.30 Diverticulosis of large intestine without perforation or abscess without bleeding; J98.11 Atelectasis; M51.379 Other intervertebral disc degeneration, lumbosacral region without mention of lumbar back pain or lower extremity pain; K76.0 Fatty (change of) liver, not elsewhere classified; Z79.2 Long term (current) use of antibiotics; Z79.899 Other long term (current) drug therapy
CPT/HCPCS: 74177; 80047; 80076; 83605; 83690; 85025; 85652; 86140; 96361; 96374; 96375; 99284; J1885; J2405; Q9967